=== PATIENT | male | born 1975 | race Two or more races ===

== ENCOUNTER → 2021-05-30 | Outpatient (CLI) | payer MEDICAID, OTHER ==
[~2021-05-30] VITALS: Ht 175.3 cm; Wt 113.4 kg
[2021-05-30] VITALS (7 sets, daily range): BP systolic 108–112; BP diastolic 68–72
[~2021-05-30] MED LIST: REGENERON 1200mg/250ml NS 250 ML IV ONE
== END | disposition home or self-care (01) ==
LOC: ER 15:00
PROVIDERS: ATTEND Internal Medicine
DX: U07.1 COVID-19 (principal); E11.9 Type 2 diabetes mellitus without complications; I10 Essential (primary) hypertension; R50.9 Fever, unspecified; R11.2 Nausea with vomiting, unspecified; R53.83 Other fatigue
CPT/HCPCS: J7050; M0243; Q0244; M0239